=== PATIENT | male | born 1945 | race Caucasian/White ===

== ENCOUNTER 2016-11-22 06:31 | Day surgery (SDC) | payer OTHER ==
[~2016-11-22] VITALS: Ht 175.3 cm; Wt 88.9 kg
[~2016-11-22 06:31] MED LIST: ACIPHEX20 MG PO; ADVAIR 250/501 DISK IH; COREG25 M1 PO; COZAAR50 MG PO; CRESTOR10 MG PO; DIALYVITE 801 TABLET PO; LASIX40 MG PO; MIRALAX17 GM PO; SPIRIVA1 INHALATI IH; SYNTHROID75 MCG PO; TYLENOL REGULA325 MG PO; VENTOLIN HFA18 GM IH; VITAMIN B12-FO1 EACH PO; ZYLOPRIM100 MG PO
[2016-11-22 07:25] LABS: HEMATOCRIT 31.6 % (38.0-50.0); MCH 32.3 PG (29.0-34.0); MCHC 31.6 G/DL (30.0-36.0); MCV 101.9 FL (86-99); MEAN PLAT.VOLUME 9.7 uM^3 (9.0-12.4); PLATELET COUNT 252 K/uL (156-360); RBC DIS.WIDTH-CV 17.3 % (11.8-14.6); RBC DIS.WIDTH-SD 64.2 % (39-53); WHITE BLOOD COUNT 9.9 K/uL (4.1-10.2)
[2016-11-22 07:54] LABS: ANION GAP 13 MEQ/L (2-14); CHLORIDE 96 MEQ/L (99-109); GFR ESTIMATE (CALCULATED) 10 mL/min/; GLUCOSE 102 mg/dL (70-99); POTASSIUM 3.5 MEQ/L (3.7-5.4); SAMPLE HEMOLYSIS CHECK 0; SAMPLE ICTERIC CHECK 0; SAMPLE LIPEMIA CHECK 0; SODIUM 141 MEQ/L (136-147); UREA NITROGEN (BUN) 39 mg/dL (9-23)
[2016-11-22 08:18] LABS: METH RESISTANT S AUREUS PCR NEGATIVE (NEGATIVE)
[2016-11-22 08:19] VITALS: BP 175/65
[2016-11-22 08:20] LABS: PROBE CHECK PASS; SPECIMEN PROCESSING CONTROL PASS
[2016-11-22 11:31] VITALS: BP 171/73
[2016-11-22 11:59] VITALS: BP 186/69
== END 2016-11-22 12:05 | disposition home or self-care (01) ==
LOC: SDC 06:31
PROVIDERS: Surgery
PROC: 0WHG03Z Insertion of Infusion Device into Peritoneal Cavity, Open Approach (ICD-10-PCS; principal; 2016-11-22)
DX: I12.0 Hypertensive chronic kidney disease with stage 5 chronic kidney disease or end stage renal disease (principal); N18.6 End stage renal disease; E78.00 Pure hypercholesterolemia, unspecified; J44.9 Chronic obstructive pulmonary disease, unspecified; Z79.02 Long term (current) use of antithrombotics/antiplatelets; Z79.82 Long term (current) use of aspirin; Z82.49 Family history of ischemic heart disease and other diseases of the circulatory system; Z87.891 Personal history of nicotine dependence
CPT/HCPCS: 80048; 85027; 87641; C1750; J0690; J1170; J3010

== ENCOUNTER 2017-01-24 05:14 | Day surgery (SDC) | payer OTHER ==
[~2017-01-24] VITALS: Ht 177.8 cm; Wt 92.1 kg
[2017-01-24 06:26] LABS: HEMATOCRIT 32.7 % (38.0-50.0); MCHC 32.1 G/DL (30.0-36.0); MCV 99.7 FL (86-99); MEAN PLAT.VOLUME 10.3 uM^3 (9.0-12.4); PLATELET COUNT 149 K/uL (156-360); RBC DIS.WIDTH-CV 16.6 % (11.8-14.6); RBC DIS.WIDTH-SD 59.7 % (39-53); RED BLOOD COUNT 3.28 M/uL (4.00-5.50); WHITE BLOOD COUNT 7.6 K/uL (4.1-10.2)
[2017-01-24 06:41] LABS: ANION GAP 10 MEQ/L (2-14); CHLORIDE 104 MEQ/L (99-109); POTASSIUM 4.1 MEQ/L (3.7-5.4); SAMPLE HEMOLYSIS CHECK 0; SAMPLE ICTERIC CHECK 0; SAMPLE LIPEMIA CHECK 0; SODIUM 141 MEQ/L (136-147)
[2017-01-24 06:47] LABS: GFR ESTIMATE (CALCULATED) 9 mL/min/; GLUCOSE 97 mg/dL (70-99); UREA NITROGEN (BUN) 37 mg/dL (9-23)
[2017-01-24 06:49] VITALS: BP 188/74
[2017-01-24 06:51] VITALS: BP 188/74
[2017-01-24 10:07] VITALS: BP 183/77
== END 2017-01-24 10:40 | disposition home or self-care (01) ==
LOC: SDC 05:14
PROVIDERS: Surgery
PROC: 0WPG33Z Removal of Infusion Device from Peritoneal Cavity, Percutaneous Approach (ICD-10-PCS; principal; 2017-01-24)
PROC: 03180KD Bypass Left Brachial Artery to Upper Arm Vein with Nonautologous Tissue Substitute, Open Approach (ICD-10-PCS; principal; 2017-01-24)
DX: I12.0 Hypertensive chronic kidney disease with stage 5 chronic kidney disease or end stage renal disease (principal); N18.6 End stage renal disease; Z99.2 Dependence on renal dialysis; E78.5 Hyperlipidemia, unspecified; E07.9 Disorder of thyroid, unspecified; J44.9 Chronic obstructive pulmonary disease, unspecified; M19.90 Unspecified osteoarthritis, unspecified site; E66.9 Obesity, unspecified; Z68.29 Body mass index [BMI] 29.0-29.9, adult; Z87.891 Personal history of nicotine dependence; Z88.8 Allergy status to other drugs, medicaments and biological substances; Z82.49 Family history of ischemic heart disease and other diseases of the circulatory system
CPT/HCPCS: 80048; 85027; C1768; C2628; J0131; J0690; J1644; J2250; J2405; J2720; J3010

== ENCOUNTER 2017-05-18 07:52 | Day surgery (SDC) | payer OTHER ==
[~2017-05-18] VITALS: Ht 177.8 cm; Wt 96.0 kg
[2017-05-18 10:07] LABS: METH RESISTANT S AUREUS PCR NEGATIVE (NEGATIVE)
[2017-05-18 10:08] LABS: PROBE CHECK PASS; SPECIMEN PROCESSING CONTROL PASS
== END 2017-05-18 09:45 | disposition home or self-care (01) ==
LOC: CATH 07:52
PROVIDERS: Surgery
DX: T82.858A Stenosis of other vascular prosthetic devices, implants and grafts, initial encounter (principal); I12.0 Hypertensive chronic kidney disease with stage 5 chronic kidney disease or end stage renal disease; N18.6 End stage renal disease; Z99.2 Dependence on renal dialysis; E78.00 Pure hypercholesterolemia, unspecified; J44.9 Chronic obstructive pulmonary disease, unspecified; E07.9 Disorder of thyroid, unspecified; E66.9 Obesity, unspecified
CPT/HCPCS: 87641; C1725; C1769; C1894; J1644; J2250; J3010

== ENCOUNTER 2017-10-12 14:00 | Day surgery (SDC) | payer OTHER | END 2017-10-12 18:05 | disposition home or self-care (01) | LOC: CATH 14:00 | PROC: B51W1ZZ Fluoroscopy of Dialysis Shunt/Fistula using Low Osmolar Contrast (ICD-10-PCS; principal; 2017-10-12) | PROC: 05HY33Z Insertion of Infusion Device into Upper Vein, Percutaneous Approach (ICD-10-PCS; principal; 2017-10-12) | PROC: 057Y3DZ Dilation of Upper Vein with Intraluminal Device, Percutaneous Approach (ICD-10-PCS; principal; 2017-10-12) | PROC: 3E03317 Introduction of Other Thrombolytic into Peripheral Vein, Percutaneous Approach (ICD-10-PCS; principal; 2017-10-12) | DX: T82.858A Stenosis of other vascular prosthetic devices, implants and grafts, initial encounter (principal); Y83.2 Surgical operation with anastomosis, bypass or graft as the cause of abnormal reaction of the patient, or of later complication, without mention of misadventure at the time of the procedure; I12.0 Hypertensive chronic kidney disease with stage 5 chronic kidney disease or end stage renal disease; N18.6 End stage renal disease; Z99.2 Dependence on renal dialysis; Z87.891 Personal history of nicotine dependence; E78.00 Pure hypercholesterolemia, unspecified; J44.9 Chronic obstructive pulmonary disease, unspecified | CPT/HCPCS: 87641; C1725; C1769; C1874; C1894; J1644 ==